=== PATIENT | female | born 1950 | race Caucasian/White ===

== ENCOUNTER → 2018-08-14 14:00 | Outpatient (CLI) | payer MEDICARE, OTHER, SELFPAY | PROVIDERS: Family Provider Family Medicine; PCP Family Medicine; Referring Provider Otolaryngology Otolaryngology/Facial Plastic Surgery; Visit Provider Otolaryngology Otolaryngology/Facial Plastic Surgery | DX: J32.9 Chronic sinusitis, unspecified (principal) | CPT/HCPCS: 87070; 87077; 87186; 87205 ==

== ENCOUNTER 2019-12-01 17:27 | Emergency (ER) | payer MEDICARE, OTHER, SELFPAY ==
[2019-12-01 17:28] VITALS: BP 194/114; PULSE 115; RESP 16; TEMP 36.7; O2SAT 96; BMI 43.2
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
--- NOTE | 2019-12-01 17:34 | CT_ITS ---
STUDY: CT BRAIN WITHOUT CONTRAST REASON FOR EXAM: Female, 69 years old. Confusion RADIATION DOSAGE (If Supplied By Facility): CTDIvol = ( 44.99 ) mGy, DLP = ( 762.36 ) mGycm TECHNIQUE: Transaxial CT imaging of the brain was performed without administration of intravenous contrast material. Individualized dose optimization techniques were used for this CT. COMPARISON: No relevant priors. FINDINGS: Normal soft tissue structures. Normal calvarium. Normal size ventricles and extra-axial spaces for the patient''s age. Normal white matter tracts of the cerebral hemispheres. Normal basal ganglia and thalami. Normal brainstem. Normal cerebellum. There is no intracranial hemorrhage. There are no findings of an acute ischemic infarction. Normal visualized paranasal sinuses. CT/Brain/Head without Contrast IMPRESSION: Normal unenhanced CT scan of the brain. Electronically Signed: Franklin Jenkins MD at 18:51 EDT , Service support ,
--- NOTE | 2019-12-01 17:34 | EKG12_ITS ---
Test Reason : Blood Pressure : / mmHG Vent. Rate : 100 BPM Atrial Rate : 100 BPM P-R Int : 136 ms QRS Dur : 074 ms QT Int : 358 ms P-R-T Axes : 057 044 061 degrees QTc Int : 461 ms Normal sinus rhythm Normal ECG Confirmed by MARLENE PAREDES MD ([id number]), continuity editor ABHAY ULLOA ([id number]) on 12/04/2019 9:04:47 AM Referred By: SHANIQUA Confirmed By:MARLENE PAREDES MD
--- NOTE | 2019-12-01 18:12 | ED.VIS.GEN ---
History of Present Illness Chief Complaint: Confusion Informant: Patient, Significant Other Onset: Month(s) Timing: Waxes and wanes Narrative: Patient is a 69-year-old female presenting with intermittent episodes of confusion. Apparently patient left her house with the TV on and water running. She did not tell her where she was going. She thought she had an allergy shot today. Patient receives her allergy shots on Tuesday but it is Tuesday. She could not get her car to start so she then wandered into the emergency room where she seemed confused. Nursing staff called her who states that patient's been having these episodes of confusion or she will leave with the stove on or things running over the past few months. They brought it up with her primary care doctor who said it is associated with either her glucose or her high blood pressure. The is concerned that she needs a brain scan. Patient currently denies any complaints. She admits to feeling flustered about the situation today. Past Medical History - Allergies and Home Meds Allergies/Adverse Reactions: Allergies azithromycin Allergy (Verified 12/01/19 17:32) PT UNSURE OF REACTION Sulfa (Sulfonamide Antibiotics) Allergy (Verified 12/01/19 17:32) PT UNSURE OF REACTION Primary Care Physician: Sascha Morgan MD [Primary Care Provider] - Past Medical History: - - Hypertension, diabetes mellitus, hypothyroid Surgical History: noncontributory Lives: Spouse/ Significant Other Review of Systems General: Denies: Chills, Fever, Sweats Eyes: Denies: Visual changes - bilaterally, Diplopia ENT: Denies: Rhinorrhea, Sore throat Cardiovascular: Denies: Chest pain, Palpitations Respiratory: Denies: Dyspnea, Cough, Dyspnea on exertion Gastrointestinal: Denies: Abdominal pain, Nausea, Vomiting, Diarrhea, Melena, Hematochezia Genitourinary: Denies: Dysuria, Hematuria, Frequency Musculoskeletal: Denies: Back pain, Extremity Pain Skin: Denies: Rash, Wounds Neurological: Denies: Headache, Weakness, Numbness Psych: Reports: - - Confusion, patient states she just feels frazzled Physical Exam Vital Signs/Narrative: Vital Signs Temp Pulse Resp BP Pulse Ox 12/01/19 17:28 98.1 F 115 H 16 194/114 H 96 Inital Vital Signs reviewed: Yes General: Well nourished, Well developed, Obese, No Acute Distress Head: Normocephalic, Atraumatic Eyes: Perrl, EOMI ENT: Moist mucous membranes, No rhinorrhea Neck: Supple, Nontender Cardiovascular: Regular rate, Regular rhythm, No murmurs Respiratory: No distress, CTA bilaterally, Chest nontender Abdomen: Soft, Nontender, Nondistended, Normal bowel sounds Back: Nontender, Normal Inspection Extremities: Nontender, No edema Skin: Normal color, No rash Neurological: Alert, Cranial nerves II-XII grossly intact, Normal Strength, Normal Sensation, Disoriented, - - Oriented to self only, appears to have poor short-term memory Psychological: Normal affect, Normal Mood Diagnostic/Tx/Re-eval Chest X-Ray - ED: 1 View, Read by ED Physician, Read by Radiologist, No Acute Disease Clinical Impression(s) from Imaging Studies Brain CT 12/01/19 17:34 IMPRESSION: Normal unenhanced CT scan of the brain. Electronically Signed: Franklin Jenkins MD at 18:51 EDT , Service support , Chest X-Ray 12/01/19 18:20 IMPRESSION: No definite acute or significant abnormality seen. Electronically Signed: Franklin Jenkins MD at 18:51 EDT , Service support , Laboratory Data 12/01/19 12/01/19 12/01/19 18:00 18:00 18:05 WBC 7.4 RBC 5.18 Hgb 15.9 H Hct 47.6 H MCV 91.9 MCH 30.7 MCHC 33.4 RDW Std Deviation 42.9 RDW Coeff of Yas 12.7 Plt Count 293 MPV 9.4 Immature Gran % (Auto) 0.400 Neut % (Auto) 73.5 H Lymph % (Auto) 13.6 L [place] % (Auto) 8.6 Eos % (Auto) 3.6 Baso % (Auto) 0.3 Absolute Neuts (auto) 5.5 Absolute Lymphs (auto) 1.01 Nucleated RBC % 0 Sodium 136 Potassium 3.6 Chloride 102 Carbon Dioxide 27.0 Anion Gap 7 BUN 19 H Creatinine 1.00 Estim Creat Clear Calc 47.78 Est GFR (MDRD) Af Amer 71 Est GFR (MDRD) Non-Af 58 L BUN/Creatinine Ratio 19.0 Glucose 306 H Calcium 9.7 Total Bilirubin 0.40 AST 21 ALT 28 Alkaline Phosphatase 107 Troponin I < 0.015 Total Protein 7.9 Albumin 3.7 Globulin 4.2 Albumin/Globulin Ratio 0.9 Urine Color Yellow Urine Clarity Clear Urine pH 6.0 Ur Specific [place] 1.020 Urine Protein 100 H Urine Glucose (UA) 1000 H Urine Ketones 15 H Urine Occult Blood 10 H Urine Nitrite Negative Urine Bilirubin Negative Urine Urobilinogen Normal Ur Leukocyte Esterase Negative Urine RBC 0 SEEN Urine WBC 0 SEEN Ur Squamous Epith Cells 0-5 SEEN Urine Bacteria RARE Urine Mucus 0 SEEN Urine Opiates Screen Urine Methadone Screen Ur Barbiturates Screen Ur Phencyclidine Scrn Ur Amphetamines Screen U Methamphetamin-MDMA U Benzodiazepines Scrn Urine Cocaine Screen U Cannabinoids Screen Ur Drug Screen Comment 12/01/19 18:05 WBC RBC Hgb Hct MCV MCH MCHC RDW Std Deviation RDW Coeff of Yas Plt Count MPV Immature Gran % (Auto) Neut % (Auto) Lymph % (Auto) [place] % (Auto) Eos % (Auto) Baso % (Auto) Absolute Neuts (auto) Absolute Lymphs (auto) Nucleated RBC % Sodium Potassium Chloride Carbon Dioxide Anion Gap BUN Creatinine Estim Creat Clear Calc Est GFR (MDRD) Af Amer Est GFR (MDRD) Non-Af BUN/Creatinine Ratio Glucose Calcium Total Bilirubin AST ALT Alkaline Phosphatase Troponin I Total Protein Albumin Globulin Albumin/Globulin Ratio Urine Color Urine Clarity Urine pH Ur Specific [place] Urine Protein Urine Glucose (UA) Urine Ketones Urine Occult Blood Urine Nitrite Urine Bilirubin Urine Urobilinogen Ur Leukocyte Esterase Urine RBC Urine WBC Ur Squamous Epith Cells Urine Bacteria Urine Mucus Urine Opiates Screen NEGATIVE Urine Methadone Screen NEGATIVE Ur Barbiturates Screen NEGATIVE Ur Phencyclidine Scrn NEGATIVE Ur Amphetamines Screen NEGATIVE U Methamphetamin-MDMA NEGATIVE U Benzodiazepines Scrn NEGATIVE Urine Cocaine Screen NEGATIVE U Cannabinoids Screen NEGATIVE Ur Drug Screen Comment - Rhythm Strip Rhythm Strip: Sinus Rhythm Rate: 100 Ectopy: None - EKG Initial EKG Interpretation: Sinus Rhythm, - - Normal sinus rhythm at a rate of 100 Normal intervals Normal axis Normal ST segments - Medical Decision Making Patient is evaluated after she came to the ER because her car would not start. It turns out patient is quite confused. Discussed with the who states patient has been wandering more, leaving the house with the stove on her water running and been more confused since June, over 6 months ago. He thinks she might need head imaging. He does feel comfortable keeping her at home however. Patient is confused with her presentation is really more consistent with dementia. She does not appear acutely encephalopathic. Patient is cooperative with a work-up but states that she does not really want a be here and wants to go home. She has a normal neurologic exam with no focal neurologic deficits. Work-up is largely unremarkable.Patient is hypertensive but attributes that to feeling anxious about the situation. Her symptoms are not consistent with hypertensive emergency however. Patient be discharged home into the care of her . He picks her up. Patient is counseled that she should not drive until she is cleared by her primary care doctor her neurologist for the safety of herself and others. ED Disposition - Plan for ED Patient: Disposition: Home or Assisted Living Diagnosis: Confusion Instructions: ED Confusion Referrals: Sascha Morgan MD [Primary Care Provider] - Additional Instructions: Tanya's head CT and medical work-up was normal today. I am concerned that she is displaying some signs of dementia. This needs to be followed up further by her primary care doctor. From there they can refer her to either neurology or [facility]. I would recommend that Tanya does not drive until cleared by either her primary care doctor or another specialist.
[2019-12-01 18:16] LABS: Mucous, Urine 0 SEEN /hpf (<or=2+); Red Blood Cells-Urine 0 SEEN /hpf (0-5); White Blood Cells 0 SEEN /hpf (0-5)
[2019-12-01 18:17] LABS: Absolute Lymphocyte Count 1.01 X10^3/uL (0.83-4.51); Absolute Neutrophil Count 5.5 X10^3/uL (2.0-7.7); Basophil# 0.02 X10^3/uL; Basophil% 0.3 % (0-1); Eosinophil# 0.27 X10^3/uL; Eosinophils% 3.6 % (0-5); Hematocrit 47.6 % (37-47); Hemoglobin 15.9 g/dL (12.0-15.0); Lymphocyte # 1.01 X10^3/ul (4.0); Lymphocyte % 13.6 % (19-41); Mean Corp Hgb Conc 33.4 g/dL (32-36); Mean Corpuscular Hgb 30.7 pg (27.0-32.0); Mean Corpuscular Volume 91.9 fL (81-99); Mean Platelet Vol. 9.4 fl (6.2-12.0); Monocyte# 0.64 X10^3/uL; Monocyte% 8.6 % (0-10); NRBC Flagged by Analyzer 0 % (0-5); Neutrophil # 5.47 X10^3/uL (2.7-7.7); Neutrophil % 73.5 % (47-70); Platelet Count 293 K/mm3 (150-450); RBC Distribution Width CV 12.7 % (11.6-14.6); RBC Distribution Width SD 42.9 fl (35.1-43.9); Red Blood Count 5.18 M/mm3 (4.2-5.4); White Blood Count 7.4 K/mm3 (4.4-11.0)
[2019-12-01 18:18] LABS: Color, Urine Yellow (Yellow); Glucose, Dipstick 1000 mg/dl (Normal); Ketone-Dipstick 15 mg/dl (Negative); Leukocyte Esterase-Dipstick Negative /ul (Negative); Nitrite-Dipstick Negative (Negative); Occult Blood-Urine 10 /ul (Negative); Protein-Dipstick 100 mg/dl (Negative); Urine Bilirubin Dipstick Negative (Negative); Urine Clarity Clear (Clear); Urine Urobilinogen Normal (Normal)
--- NOTE | 2019-12-01 18:20 | RAD_ITS ---
STUDY: X-RAY CHEST REASON FOR EXAM: Female, 69 years old. Altered mental status. TECHNIQUE: Single AP portable view of the chest. COMPARISON: None. FINDINGS: The lungs are clear and expanded. There is no demonstrated pleural abnormality. Normal size heart. Normal mediastinum and kenyon. Normal visualized pulmonary arteries. Normal visualized aortic arch and descending thoracic aorta. There are diffuse degenerative changes of the visualized thoracic spine. There is degenerative osteoarthritis of the bilateral shoulders. There is no demonstrated abnormality of the visualized soft tissue structures of the upper abdomen. RAD/Chest 1 View (Portable) IMPRESSION: No definite acute or significant abnormality seen. Electronically Signed: Franklin Jenkins MD at 18:51 EDT , Service support ,
[2019-12-01 18:24] LABS: Bacteria RARE /hpf (None Seen); Squamous Epithelial Cells - UA 0-5 SEEN /hpf (5-10)
[2019-12-01 18:32] LABS: Amphetamine Urine VISTA NEGATIVE (<1000 ng/mL); Barbiturate Urine VISTA NEGATIVE (< 200 ng/mL); Benzodiazepine Urine VISTA NEGATIVE (< 200 ng/mL); Cocaine Urine VISTA NEGATIVE (< 300 ng/mL); Ecstacy Urine VISTA NEGATIVE (< 500 ng/mL); Methadone Urine VISTA NEGATIVE (< 300 ng/mL); PCP Urine VISTA NEGATIVE (< 25 ng/mL); THC Urine VISTA NEGATIVE (< 50 ng/mL); Vista UDS pH Range 6
[2019-12-01 18:38] LABS: ALB/GLOB Ratio 0.9 RATIO (0.9-2.4); AST(SGOT) 21 U/L (15-37); Alanine Aminotransfer ALT/SGPT 28 U/L (13-56); Albumin, Serum 3.7 g/dL (3.2-5.0); Alkaline Phosphatase 107 U/L (45-117); Anion Gap 7 (5-15); BUN 19 mg/dL (7-18); Calcium,Total 9.7 mg/dL (8.5-10.1); Chloride 102 mmol/L (98-107); EST Glomerular Filtration Rate 58 mL/min (>60); Est Glom Filt Rate - Afr Amer 71 mL/min (>60); Estimated Creatinine Clearance 47.78 ml/min; Globulin 4.2 g/dL (2.2-4.2); Glucose 306 mg/dL (74-106); Potassium 3.6 mmol/L (3.5-5.1); Protein, Total 7.9 g/dL (6.4-8.2); Sodium Level 136 mmol/L (136-145)
[2019-12-01 19:31] VITALS: BP 184/100; PULSE 72; RESP 18; O2SAT 100
--- NOTE | 2019-12-01 19:32 | ED.RN ---
Pending s/o to come get PT as she is not safe to drive home.
[2019-12-03 10:55] LABS: Bedside Glucose 329 mg/dL (70-110)
== END 2019-12-01 19:51 | disposition home or self-care (01) ==
PROVIDERS: Emergency Provider Emergency Medicine; PCP Family Medicine
DX: R41.0 Disorientation, unspecified (principal); E11.9 Type 2 diabetes mellitus without complications; I10 Essential (primary) hypertension; E03.9 Hypothyroidism, unspecified; E66.9 Obesity, unspecified; Z79.4 Long term (current) use of insulin; Z79.899 Other long term (current) drug therapy; Z88.1 Allergy status to other antibiotic agents; Z88.2 Allergy status to sulfonamides
CPT/HCPCS: 70450; 71045; 80053; 80307; 81001; 82962; 84484; 85025; 93005; 99283; A4216

== ENCOUNTER 2020-12-30 16:38 | Emergency (ER) | payer MEDICARE, OTHER, SELFPAY ==
[2020-10-10 11:04] VITALS: BMI 46.4
[2020-12-30 16:39] VITALS: BP 170/70; PULSE 75; RESP 18; TEMP 36.5; O2SAT 98; BMI 45.5
--- NOTE | 2020-12-30 16:56 | EX.ED.DYSGE1 ---
HPI History of Present Illness Chief Complaint: Hypoglycemia Informant: patient, EMS and SNF Narrative Narrative: 70-year-old female from [place] states that she started to feel poorly around 4:15 pm. She states that she felt woozy and slow. She had a blood sugar checked and it was down into the 40s. She states that she ate some candy and 3 glucose tabs and 4 minutes after the glucose tabs they rechecked her blood sugar and it was in the 50s so they called EMS. She states for the past 5 days she has had difficulty with her blood sugars going too low. She states that her Levemir was altered but she did not get it last night. She had been taking Levemir 60 units nightly and aspart 36 units with each meal (3 times daily). She sees Dr. Pascual Tabares for endocrinology. Per [place]: bshe had her Levemir changed to 54 units which she got last night. Her aspart was changed to 32 units and she got it this morning but it was held at lunchtime because she was too low. No hard number to report. Patient states that this morning when she got up she felt fine. She notes that in 7 weeks that she has been at [place] she has lost 20 pounds. She is on a 1200-calorie diet and does not believe she is getting enough calories. BGT shortly after arrival shows her blood sugar to be 108. [facility] Medical History Diabetes Goiter Hyperlipidemia Hypertension Hypothyroidism Seasonal allergies Thyroid disease Home Medications duloxetine 60 mg PO DAILY 12/01/19 [History Last Taken Unknown] hydrochlorothiazide 25 mg PO DAILY 12/01/19 [History Last Taken Unknown] latanoprost (PF) 7.5 ml OP DAILY 12/01/19 [History Last Taken Unknown] levothyroxine 50 mcg PO QWEEK 12/01/19 [History Last Taken Unknown] levothyroxine 200 mcg PO DAILY 12/01/19 [History Last Taken Unknown] telmisartan 40 mg PO DAILY 12/01/19 [History Last Taken Unknown] ascorbate calcium (vitamin C) 500 mg tablet 500 mg PO DAILY 06/13/20 [History Last Taken Unknown] blood sugar diagnostic #10 ea 10/10/20 [History Last Taken Unknown] timolol maleate 0.5 % once daily eye drops 1 drp OPHTHALMIC DAILY ml 10/10/20 [History Last Taken Unknown] glucagon (human recombinant) 1 mg solution for injection 1 mg SC Q20M PRN #1 each 11/25/20 [Rx Last Taken Unknown] aspirin 81 mg PO DAILY 12/30/20 [History Last Taken Unknown] biotin 1,000 mcg PO DAILY 12/30/20 [History Last Taken Unknown] cephalexin 500 mg PO Q6 #40 capsule 12/30/20 [Rx Last Taken Unknown] escitalopram oxalate 10 mg PO DAILY 12/30/20 [History Last Taken Unknown] furosemide 20 mg PO DAILY 12/30/20 [History Last Taken Unknown] hydrochlorothiazide 25 mg PO DAILY 12/30/20 [History Last Taken Unknown] insulin aspart U-100 [Novolog Flexpen U-100 Insulin] 32 unit SUBCUT TID 12/30/20 [History Last Taken Unknown] insulin detemir U-100 [Levemir Flexpen] 54 unit SUBCUT QHS 12/30/20 [History Last Taken Unknown] ketotifen fumarate 1 drp EACH EYE DAILY 12/30/20 [History Last Taken Unknown] Allergy/AdvReac Type Severity Reaction Status Date / Time azithromycin Allergy PT UNSURE Verified 12/30/20 16:39 OF REACTION Sulfa (Sulfonamide Allergy PT UNSURE Verified 12/30/20 16:39 Antibiotics) OF REACTION Family History Mother Hypertension Myocardial infarction Father Diabetes CHF (congestive heart failure) Surgical History History of cholecystectomy History of tonsillectomy and adenoidectomy left eye cataract surgery thyroid removal Total knee replacement status Social History Smoking Status: Never smoker alcohol intake: current alcohol intake frequency: holidays/special occasions only substance use type: does not use what type of physical activity do you participate in: bicycling frequency: 3-4 times per week ROS ROS ED Constitutional Constitutional ED: Reports weight loss and other Details: See history of present illness ; Denies chills Eyes Eyes: Denies change in vision or diplopia ENT ENT ED: Denies ear pain, rhinorrhea or sore throat Cardiovascular Cardiovascular: Denies chest pain, orthopnea, palpitations or racing heartbeat Respiratory/Chest Respiratory/Chest: Denies cough, dyspnea or orthopnea Gastrointestinal Gastrointestinal: Denies abdominal pain, diarrhea, nausea or vomiting Genitourinary Genitourinary ED: Denies dysuria, hematuria or urinary frequency Musculoskeletal Musculoskeletal: Denies arthralgias or myalgias Integumentary Denies abscess or rash Neurologic Neurologic: Denies headache(s) or weakness Psychiatric Psychiatric: Denies anxiety, depression, suicidal ideation or suicidal thoughts Endocrine Endocrinology: Denies polydipsia, polyphagia or polyuria Allergic/Immunologic Allergic/Immunologic ED: Denies mouth swelling, tongue swelling or urticaria EXAM Physical Exam Const Vital Signs: 12/30/20 16:39 12/30/20 16:53 12/30/20 17:47 Temperature 97.7 F L Temperature Source Oral Pulse Rate 75 68 Respiratory Rate 18 Respiratory Effort Normal Non-Labored Blood Pressure 170/70 H 138/63 H Blood Pressure Mean 103 88 Pulse Ox 98 95 Oxygen Delivery Method Room Air Room Air Positive well nourished, well developed and obese General Appearance ED: well developed Nutritional Appearance: obese HEENT Reports normocephalic, head/scalp atraumatic and moist mucous membranes Eyes PERRL and EOMs intact bilaterally Neck no lymphadenopathy, supple and no JVD Resp normal respiratory effort and clear to auscultation bilaterally Cardio regular rate, regular rhythm and no murmurs GI normal to inspection, nondistended, normoactive bowel sounds and non-tender Palpation: soft Back/Spine no CVA tenderness and normal ROM Extremity Extremity Narrative: Bilateral lower extremity edema. Anteriorly over both legs is a mild amount of erythema the left is greater than right with increased warmth. General Extremety ED: Yes edema General Extremity: edema Neuro oriented x3 and CN's II-XII intact bilaterally Sensorium / Orientation: alert Motor Exam: strength 5/5 throughout Psych mental status grossly normal Mood & Affect: Negative for depressed or tearful Skin no rashes or lesions noted and no wounds MDM MDM MDM Narrative Medical decision making narrative: Patient's blood sugar shortly arrival is 106. She was given food. We will observe her for several more blood sugar readings. I spoke with Dr. Tabares. She would like to reduce her Levemir down to 40 units and her aspart down to 24 units. Patient's white count is normal. She is not febrile. I will place her on Keflex for the lower extremity erythema. Lab Data Labs: Laboratory Results - last 24 hr 12/30/20 12/30/20 12/30/20 16:45 16:45 17:06 WBC 6.3 RBC 4.75 Hgb 14.4 Hct 44.4 MCV 93.5 MCH 30.3 MCHC 32.4 RDW Std Deviation 43.0 RDW Coeff of Yas 12.5 Plt Count 311 MPV 9.5 Immature Gran % (Auto) 0.300 Neut % (Auto) 68.9 Lymph % (Auto) 13.9 L [place] % (Auto) 13.6 H Eos % (Auto) 3.0 Baso % (Auto) 0.3 Absolute Neuts (auto) 4.3 Absolute Lymphs (auto) 0.87 Nucleated RBC % 0 Sodium 140 Potassium 3.4 L Chloride 105 Carbon Dioxide 31.0 Anion Gap 4 L BUN 23 H Creatinine 1.04 H Estim Creat Clear Calc 43.46 Est GFR (MDRD) Af Amer 67 Est GFR (MDRD) Non-Af 56 L BUN/Creatinine Ratio 22.1 H Glucose 77 Calcium 9.7 POC Glucose 108 12/30/20 17:43 WBC RBC Hgb Hct MCV MCH MCHC RDW Std Deviation RDW Coeff of Yas Plt Count MPV Immature Gran % (Auto) Neut % (Auto) Lymph % (Auto) [place] % (Auto) Eos % (Auto) Baso % (Auto) Absolute Neuts (auto) Absolute Lymphs (auto) Nucleated RBC % Sodium Potassium Chloride Carbon Dioxide Anion Gap BUN Creatinine Estim Creat Clear Calc Est GFR (MDRD) Af Amer Est GFR (MDRD) Non-Af BUN/Creatinine Ratio Glucose Calcium POC Glucose 110 Discharge Plan Triage Chief Complaint: Hypoglycemia ED Provider: Eduard Lomas Dx/Rx/DC Orders Clinical Impression: Diabetic hypoglycemia, Cellulitis of left leg Instructions: ED Diabetic Insulin Reaction Prescriptions: New cephalexin [cephalexin] 500 MG capsule 500 mg PO Q6 Qty: 40 RF: 0 Discontinued insulin aspart U-100 100 UNITS/ML insulin pen 36 units subcut TIDCM RF: 0 insulin detemir U-100 100 UNITS/ML insulin pen 10 units subcut DAILY RF: 0 No Action ascorbate calcium (vitamin C) 500 mg tablet 500 mg PO DAILY RF: 0 timolol maleate 0.5 % drops, once daily 1 drp OPHTHALMIC DAILY RF: 0 (DME) blood sugar diagnostic Strip See Rx Instructions ea .ROUTE .MEDSUPPLY Qty: 10 RF: 0 levothyroxine 50 MCG tablet 50 mcg PO QWEEK RF: 0 telmisartan 40 MG tablet 40 mg PO DAILY RF: 0 levothyroxine 200 MCG tablet 200 mcg PO DAILY RF: 0 hydrochlorothiazide 25 MG tablet 25 mg PO DAILY RF: 0 duloxetine 60 MG capsule,delayed release(DR/EC) 60 mg PO DAILY RF: 0 latanoprost (PF) 7.5 ML drops 7.5 ml OP DAILY RF: 0 ketotifen fumarate 0.025 % (0.035 %) Drops 1 drp EACH EYE DAILY RF: 0 aspirin 81 mg Tablet 81 mg PO DAILY RF: 0 hydrochlorothiazide 25 mg Tablet 25 mg PO DAILY RF: 0 furosemide 20 mg Tablet 20 mg PO DAILY RF: 0 escitalopram oxalate 10 mg Tablet 10 mg PO DAILY RF: 0 biotin 1,000 mcg Tablet,Chewable 1,000 mcg PO DAILY RF: 0 insulin aspart U-100 [Novolog Flexpen U-100 Insulin] 100 unit/mL (3 mL) Insulin Pen 32 unit SUBCUT TID RF: 0 Levemir Flexpen 100 unit/mL (3 mL) Insulin Pen 54 unit SUBCUT QHS RF: 0 Glucagon Emergency Kit (human) 1 mg recon soln 1 mg SC Q20M PRN (Reason: hypoglycemia) Qty: 1 RF: 3 Primary Care Provider: Sascha Morgan Referrals: Sascha Morgan MD [Primary Care Provider] - 5-7 Days Activity Restrictions/Additional Instructions: Please note the following changes in your insulin. Levemir 40 units at bedtime Aspart 24 units with each meal Disposition Disposition: Assisted Living Discharge Location: [facility]
[2020-12-30 17:03] LABS: Absolute Lymphocyte Count 0.87 X10^3/uL (0.83-4.51); Absolute Neutrophil Count 4.3 X10^3/uL (2.0-7.7); Basophil# 0.02 X10^3/uL; Basophil% 0.3 % (0-1); Eosinophil# 0.19 X10^3/uL; Hematocrit 44.4 % (37-47); Hemoglobin 14.4 g/dL (12.0-15.0); Lymphocyte # 0.87 X10^3/ul (0.83-4.51); Lymphocyte % 13.9 % (19-41); Mean Corp Hgb Conc 32.4 g/dL (32-36); Mean Corpuscular Hgb 30.3 pg (27.0-32.0); Mean Corpuscular Volume 93.5 fL (81-99); Mean Platelet Vol. 9.5 fl (6.2-12.0); Monocyte# 0.85 X10^3/uL; Monocyte% 13.6 % (0-10); NRBC Flagged by Analyzer 0 % (0-5); Neutrophil % 68.9 % (47-70); Platelet Count 311 K/mm3 (150-450); RBC Distribution Width CV 12.5 % (11.6-14.6); Red Blood Count 4.75 M/mm3 (4.2-5.4); White Blood Count 6.3 K/mm3 (4.4-11.0)
[2020-12-30 17:11] LABS: Bedside Glucose 108 mg/dL (70-110)
[2020-12-30 17:19] LABS: Anion Gap 4 (5-15); BUN 23 mg/dL (7-18); BUN/Creat Ratio 22.1 RATIO (10-20); Calcium,Total 9.7 mg/dL (8.5-10.1); Chloride 105 mmol/L (98-107); Creatinine, Serum 1.04 mg/dL (0.55-1.02); EST Glomerular Filtration Rate 56 mL/min (>60); Est Glom Filt Rate - Afr Amer 67 mL/min (>60); Estimated Creatinine Clearance 43.46 ml/min; Glucose 77 mg/dL (74-106); Potassium 3.4 mmol/L (3.5-5.1); Sodium Level 140 mmol/L (136-145)
[2020-12-30 17:47] VITALS: BP 138/63; PULSE 68; O2SAT 95
[2020-12-30 17:51] LABS: Bedside Glucose 110 mg/dL (70-110)
[2020-12-30 19:03] VITALS: BP 141/73; PULSE 72; O2SAT 97
[2020-12-30 19:06] LABS: Bedside Glucose 121 mg/dL (70-110)
--- NOTE | 2020-12-30 19:10 | ED.RN ---
attempted to call report, nurse is at lunch.
== END 2020-12-30 19:29 | disposition home or self-care (01) ==
PROVIDERS: Emergency Provider Emergency Medicine; PCP Family Medicine
DX: E11.649 Type 2 diabetes mellitus with hypoglycemia without coma (principal); L03.116 Cellulitis of left lower limb; R60.0 Localized edema; I10 Essential (primary) hypertension; E04.9 Nontoxic goiter, unspecified; E78.5 Hyperlipidemia, unspecified; E03.9 Hypothyroidism, unspecified; E66.9 Obesity, unspecified; Z79.82 Long term (current) use of aspirin; Z79.4 Long term (current) use of insulin; Z79.890 Hormone replacement therapy; Z79.899 Other long term (current) drug therapy
CPT/HCPCS: 80048; 82962; 85025; 99285; A4216

== ENCOUNTER → 2021-08-10 | Outpatient (CLI) | payer MEDICARE, OTHER, SELFPAY ==
[2021-08-10 16:55] LABS: Anion Gap 5 (5-15); BUN 27 mg/dL (7-18); BUN/Creat Ratio 28.2 RATIO (10-20); Calcium,Total 9.5 mg/dL (8.5-10.1); Chloride 108 mmol/L (98-107); Creatinine, Serum 0.96 mg/dL (0.55-1.02); EST Glomerular Filtration Rate 61 mL/min (>60); Est Glom Filt Rate - Afr Amer 74 mL/min (>60); Glucose 126 mg/dL (74-106); Potassium 4.1 mmol/L (3.5-5.1); Sodium Level 140 mmol/L (136-145)
== END | disposition home or self-care (01) ==
LOC: LABSPEC 15:42
PROVIDERS: PCP Family Medicine; Referring Provider Internal Medicine Endocrinology, Diabetes & Metabolism; Visit Provider Internal Medicine Endocrinology, Diabetes & Metabolism
DX: I10 Essential (primary) hypertension (principal)
CPT/HCPCS: 36415; 80048

== ENCOUNTER 2021-09-25 10:07 | Outpatient (RCR) | payer MEDICARE, OTHER, SELFPAY ==
--- NOTE | 2021-09-28 16:46 | HP.OTEVAL ---
Patient's Visit Information SABINA READ is a 71 year old F, referred to Occupational Therapy by Dr. Pascual Tabares MD, with a diagnosis of edema. Date of Evaluation: 09/25/21 Occupational Therapist: Maia Ward, JERROD/Evens, CHT - Subjective This 71 year old female was seen for OT eval with a dx of edema- pt states she has had swelling for years- pt states she has been using compression socks for about two months- pt is wearing compression socks - 20- 30mmHg. pt states she started with a silver sneaker program about 3 weeks ago and with using the compression socks has noticed the swelling in her LE is better- states he legs do not feel as tight- and shoes are loser on her feet- states the top of her feet still get swollen- pt would like to know what she can do to assist with edema mtg. pt states her father also has swelling/edema. pt states she has had cellulitis in the past. - Lymphedema (Circumferential Measure) Mid-foot: right 24cm left 25.5cm Ankle: right 32cm left 31.5 Lower calf: right 29cm left 29.5cm Largest calf: right 47cm left 46cm Below knee: right 46cm left 46cm Lower Exremity Comments: pt demo with edema in bilateral LE- - Lower Limb Functional Index Lower Extremity Functional Score: 36 - Goals Demonstrate a 20% reduction in edema by d/c: Yes Demonstrate adequate knowledge of self-massage by 2nd week: Yes Demonstrate adequate knowledge skin care/prec by 2nd week: Yes Demonstrate adequate knowledge therapeutic exercises by d/c: Yes Select approp compression garment w/donning/care/wear by d/c: Yes Voice need to replace compression garment every 4-6mo by dc: Yes - Rehabilitation General Assessment: pt demo edema in bilateral LE and demo need for skilled OT services to ed. pt on mtg of LE edema- Today therapist ed. pt on need of change of compression socks to smaller size, ed. on skin care, and exercise (AROM, water aerobics) that would benefit circulation and decrease edema flair ups- therapist did ed. pt to get her compression socks on within the first 30-45min- after getting up in the am- pt demo understanding- therapist also ed. pt on use of toe cap under her compression socks to assist in edema control on top of her foot. pt and pts spouse demo understanding. therapist encouraged pt to initiate return to her swimming as this will assist pt with fluid circulation - pt was receptive. pt to return for ed. in left manual lymph massage she can perform herself 3-4x a day- pt will schedule if she wants to learn this kwadwo. pt and pts spouse demo understanding and was receptive to therapist ed. on mtg LE edema. Rehabilitation Potential: Questionable - Anticipated Interventions Education re assistive Equipment, Education re Diagnosis, Manual Lymph Drainage, Education re Life-long lymphedema Management, Education re Skin Care and Precautions, Education re Self Massage Techniques, Education re Correct Donning Tech,Care&Wearing Sched Comp Garments, Home Program - Visit Plan Frequency: 1x/Week Duration: 3 Weeks TEXT: Thank you for the opportunity to evaluate your patient. For Medicare and Medicare HMO plans, please review the plan of care and approve it. It will need to be FAXED BACK to us at [phone] for Medicare purposes. Please let me know if there are questions or concerns regarding this plan of care. Physician Signature: Date:
--- NOTE | 2021-12-28 11:23 | HP.OT.NRP ---
SABINA READ was seen in my office for initial evaluation on 09/25/21. The following Plan of Care was established for this patient: Initial Frequency: 1x/Week Initial Duration: 3 Weeks Anticipated Interventions: Education re assistive Equipment, Education re Diagnosis, Manual Lymph Drainage, Education re Life-long lymphedema Management, Education re Skin Care and Precautions, Education re Self Massage Techniques, Education re Correct Donning Tech,Care&Wearing Sched Comp Garments, Home Program This patient was last seen in our office 09/25/21. Pertinent comments regarding their Occupational therapy will appear below: Pt was seen for initial OT eval only- pt ed. on mtg of lymphedema - pt at this time has not scheduled a follow up visit and due to time lapse in services pt d/c at this time. At this point I will be discontinuing this patient from occupational therapy. I would be happy to see this patient again in the future if found appropriate by the physician. Thank you! Maia Ward, OTR/L, CHT
== END 2021-09-25 19:00 | disposition home or self-care (01) ==
LOC: OT 10:07
PROVIDERS: PCP Family Medicine; Referring Provider Internal Medicine Endocrinology, Diabetes & Metabolism; Visit Provider Internal Medicine Endocrinology, Diabetes & Metabolism
DX: R60.9 Edema, unspecified (principal)
CPT/HCPCS: 97166; 97530

== ENCOUNTER 2021-11-11 11:58 | Outpatient (CLI) | payer MEDICARE, OTHER, SELFPAY ==
[2021-11-11 15:28] LABS: Vitamin D,25 Hydroxy 41.7 ng/mL
[2021-11-11 15:43] LABS: Cholesterol 197 mg/dL (200); High Density Lipoprotein 35 mg/dL; T4 Free Direct 0.86 ng/dL (0.76-1.46); Triglycerides 165 mg/dL; Very Low Density Lipoprotein 33 mg/dL (5-40)
== END 2021-11-11 23:59 | disposition home or self-care (01) ==
LOC: BIMLAB 11:59
PROVIDERS: PCP Family Medicine; Referring Provider Nurse Practitioner Family; Visit Provider Nurse Practitioner Family
DX: E11.21 Type 2 diabetes mellitus with diabetic nephropathy (principal); E11.22 Type 2 diabetes mellitus with diabetic chronic kidney disease; Z79.4 Long term (current) use of insulin; N18.31 Chronic kidney disease, stage 3a; E55.9 Vitamin D deficiency, unspecified
CPT/HCPCS: 36415; 80061; 82306; 84439; 84443

== ENCOUNTER → 2022-12-31 | Outpatient (CLI) | payer MEDICARE, OTHER, SELFPAY ==
[2022-12-31 15:47] LABS: ALB/GLOB Ratio 1.2 RATIO (0.9-2.4); AST(SGOT) 15 U/L (15-37); Alanine Aminotransfer ALT/SGPT 20 U/L (13-56); Albumin, Serum 3.8 g/dL (3.2-5.0); Alkaline Phosphatase 82 U/L (45-117); Anion Gap 6 (5-15); BUN 42 mg/dL (7-18); BUN/Creat Ratio 34.7 RATIO (10-20); Calcium,Total 9.7 mg/dL (8.5-10.1); Chloride 107 mmol/L (98-107); Creatinine, Serum 1.21 mg/dL (0.55-1.02); EST Glomerular Filtration Rate 46 mL/min (>60); Est Glom Filt Rate - Afr Amer 56 mL/min (>60); Globulin 3.3 g/dL (2.2-4.2); Glucose 111 mg/dL (74-106); Protein, Total 7.1 g/dL (6.4-8.2); Sodium Level 142 mmol/L (136-145); T4 Free Direct 0.94 ng/dL (0.76-1.46); Thyroid Stim Hormone (TSH) 4.09 uIU/mL (0.358-3.74)
== END | disposition home or self-care (01) ==
LOC: BIMLAB 13:37
PROVIDERS: PCP Family Medicine; Referring Provider Nurse Practitioner Family; Visit Provider Nurse Practitioner Family
DX: E11.21 Type 2 diabetes mellitus with diabetic nephropathy (principal); E11.22 Type 2 diabetes mellitus with diabetic chronic kidney disease; Z79.4 Long term (current) use of insulin; N18.31 Chronic kidney disease, stage 3a
CPT/HCPCS: 36415; 80053; 84439; 84443

== ENCOUNTER → 2023-09-16 | Outpatient (CLI) | payer MEDICARE, OTHER, SELFPAY ==
[2023-09-16 14:47] LABS: AST(SGOT) 14 U/L (15-37); Alanine Aminotransfer ALT/SGPT 19 U/L (13-56); Albumin, Serum 3.7 g/dL (3.2-5.0); Alkaline Phosphatase 65 U/L (45-117); Anion Gap 3 (5-15); BUN 33 mg/dL (7-18); BUN/Creat Ratio 30.3 RATIO (10-20); Calcium,Total 9.4 mg/dL (8.5-10.1); Chloride 114 mmol/L (98-107); Cholesterol 193 mg/dL (200); Creatinine, Serum 1.09 mg/dL (0.55-1.02); EST Glomerular Filtration Rate 52 mL/min (>60); Est Glom Filt Rate - Afr Amer 63 mL/min (>60); Globulin 3.7 g/dL (2.2-4.2); Glucose 62 mg/dL (74-106); High Density Lipoprotein 38 mg/dL; Potassium 4.1 mmol/L (3.5-5.1); Protein, Total 7.4 g/dL (6.4-8.2); Sodium Level 143 mmol/L (136-145); Thyroid Stim Hormone (TSH) 5.45 uIU/mL (0.358-3.74); Triglycerides 116 mg/dL; Very Low Density Lipoprotein 23 mg/dL (5-40)
== END | disposition home or self-care (01) ==
LOC: LAB 13:21
PROVIDERS: Internal Medicine Endocrinology, Diabetes & Metabolism; PCP Family Medicine; Referring Provider Internal Medicine Nephrology; Visit Provider Internal Medicine Nephrology
DX: I12.9 Hypertensive chronic kidney disease with stage 1 through stage 4 chronic kidney disease, or unspecified chronic kidney disease (principal); E11.22 Type 2 diabetes mellitus with diabetic chronic kidney disease; E11.21 Type 2 diabetes mellitus with diabetic nephropathy; N18.32 Chronic kidney disease, stage 3b; E89.0 Postprocedural hypothyroidism; E78.5 Hyperlipidemia, unspecified; E55.9 Vitamin D deficiency, unspecified
CPT/HCPCS: 36415; 80053; 80061; 82306; 84443

== ENCOUNTER → 2023-09-27 | Outpatient (CLI) | payer MEDICARE, OTHER, SELFPAY ==
[2023-09-27 11:07] LABS: Hematocrit 38.3 % (37-47); Hemoglobin 11.9 g/dL (12.0-15.0); Mean Corp Hgb Conc 31.1 g/dL (32-36); Mean Corpuscular Hgb 29.5 pg (27.0-32.0); Mean Corpuscular Volume 94.8 fL (81-99); Mean Platelet Vol. 9.5 fl (6.2-12.0); Platelet Count 254 K/mm3 (150-450); RBC Distribution Width CV 14.4 % (11.6-14.6); RBC Distribution Width SD 50.1 fl (35.1-43.9); Red Blood Count 4.04 M/mm3 (4.2-5.4); White Blood Count 5.6 K/mm3 (4.4-11.0)
[2023-09-27 11:21] LABS: Albumin, Serum 3.7 g/dL (3.2-5.0); BUN 35 mg/dL (7-18); BUN/Creat Ratio 28.5 RATIO (10-20); Calcium,Total 9.5 mg/dL (8.5-10.1); Chloride 111 mmol/L (98-107); Creatinine, Serum 1.23 mg/dL (0.55-1.02); EST Glomerular Filtration Rate 45 mL/min (>60); Est Glom Filt Rate - Afr Amer 55 mL/min (>60); Glucose 74 mg/dL (74-106); Iron 52 ug/dL (50-170); Iron Binding Capacity,Total 257 ug/dL (250-450); Phosphorus 3.1 mg/dL (2.5-4.9); Potassium 4.2 mmol/L (3.5-5.1); Sodium Level 142 mmol/L (136-145)
[2023-09-27 11:22] LABS: PTHIN 70.6 pg/mL (18.4-80.1)
[2023-09-27 12:10] LABS: Microalbumin:Creatinine Ratio 705.8 mg/g CRE (<30 mg/g CRE)
[2023-09-28 17:05] LABS: Ferritin 145 ng/mL (8-252)
== END | disposition home or self-care (01) ==
LOC: POLAB3 10:46
PROVIDERS: PCP Family Medicine; Visit Provider Internal Medicine Nephrology
DX: N18.32 Chronic kidney disease, stage 3b (principal); D64.9 Anemia, unspecified
CPT/HCPCS: 36415; 80069; 82043; 82570; 82728; 83540; 83550; 83970; 85027

== ENCOUNTER 2023-10-31 12:59 | Outpatient (RCR) | payer MEDICARE, OTHER, SELFPAY | END 2023-11-13 23:59 | LOC: NS 12:59 | PROVIDERS: PCP Family Medicine; Referring Provider Nurse Practitioner Family; Visit Provider Nurse Practitioner Family | DX: Z71.3 Dietary counseling and surveillance (principal); E11.22 Type 2 diabetes mellitus with diabetic chronic kidney disease; N18.31 Chronic kidney disease, stage 3a; E66.9 Obesity, unspecified; I12.9 Hypertensive chronic kidney disease with stage 1 through stage 4 chronic kidney disease, or unspecified chronic kidney disease | CPT/HCPCS: 97802 ==

== ENCOUNTER 2023-11-30 13:08 | Outpatient (RCR) | payer MEDICARE, OTHER, SELFPAY | END 2023-12-13 23:59 | LOC: NS 13:08 | PROVIDERS: PCP Family Medicine; Referring Provider Nurse Practitioner Family; Visit Provider Nurse Practitioner Family | DX: Z71.3 Dietary counseling and surveillance (principal); E11.22 Type 2 diabetes mellitus with diabetic chronic kidney disease; N18.31 Chronic kidney disease, stage 3a; E66.9 Obesity, unspecified; I12.9 Hypertensive chronic kidney disease with stage 1 through stage 4 chronic kidney disease, or unspecified chronic kidney disease | CPT/HCPCS: 97803 ==

== ENCOUNTER 2024-02-08 12:47 | Outpatient (RCR) | payer MEDICARE, OTHER, SELFPAY | END 2024-02-12 23:59 | LOC: NS 12:47 | PROVIDERS: PCP Family Medicine; Referring Provider Nurse Practitioner Family; Visit Provider Nurse Practitioner Family | DX: Z71.3 Dietary counseling and surveillance (principal); I12.9 Hypertensive chronic kidney disease with stage 1 through stage 4 chronic kidney disease, or unspecified chronic kidney disease; E11.22 Type 2 diabetes mellitus with diabetic chronic kidney disease; N18.31 Chronic kidney disease, stage 3a; E66.9 Obesity, unspecified | CPT/HCPCS: 97803 ==

== ENCOUNTER → 2024-04-17 | Outpatient (CLI) | payer MEDICARE, OTHER, SELFPAY ==
[2024-04-17 12:55] LABS: Hematocrit 38.8 % (37-47); Hemoglobin 12.3 g/dL (12.0-15.0); Mean Corp Hgb Conc 31.7 g/dL (32-36); Mean Corpuscular Hgb 30.1 pg (27.0-32.0); Mean Corpuscular Volume 95.1 fL (81-99); Platelet Count 254 K/mm3 (150-450); RBC Distribution Width SD 48.5 fl (35.1-43.9); Red Blood Count 4.08 M/mm3 (4.2-5.4); White Blood Count 5.6 K/mm3 (4.4-11.0)
[2024-04-17 13:23] LABS: Albumin, Serum 3.6 g/dL (3.2-5.0); BUN 34 mg/dL (7-18); BUN/Creat Ratio 28.1 RATIO (10-20); Calcium,Total 9.6 mg/dL (8.5-10.1); Chloride 108 mmol/L (98-107); Creatinine, Serum 1.21 mg/dL (0.55-1.02); EST Glomerular Filtration Rate 46 mL/min (>60); Est Glom Filt Rate - Afr Amer 56 mL/min (>60); Ferritin 122 ng/mL (8-252); Glucose 77 mg/dL (74-106); Iron 49 ug/dL (50-170); Iron Binding Capacity,Total 272 ug/dL (250-450); Phosphorus 3.7 mg/dL (2.5-4.9); Potassium 3.9 mmol/L (3.5-5.1); Sodium Level 143 mmol/L (136-145)
== END | disposition home or self-care (01) ==
LOC: LAB 11:43
PROVIDERS: PCP Family Medicine; Referring Provider Internal Medicine Nephrology; Visit Provider Internal Medicine Nephrology
DX: N18.32 Chronic kidney disease, stage 3b (principal); D64.9 Anemia, unspecified
CPT/HCPCS: 36415; 80069; 82728; 83540; 83550; 85027

== ENCOUNTER → 2024-10-23 | Outpatient (CLI) | payer MEDICARE, OTHER, SELFPAY ==
[2024-10-23 13:39] LABS: Microalbumin:Creatinine Ratio 3930.2 mg/g CRE
== END | disposition home or self-care (01) ==
LOC: POLAB3 11:56
PROVIDERS: PCP Family Medicine; Visit Provider Internal Medicine Nephrology
DX: E11.9 Type 2 diabetes mellitus without complications (principal)
CPT/HCPCS: 82043; 82570

== ENCOUNTER 2025-07-18 08:36 | Day surgery (SDC) | payer MEDICARE, OTHER, SELFPAY ==
--- NOTE | 2025-07-17 12:06 | PAT.ANESEVAL ---
Pre-Assessment Diagnosis/Proposed Procedure Planned Operative Procedure(s): EGD Anesthesia History Anesthesia History - environmental consultant: Anesthesia History - environmental consultant Hx Hospitalization No 07/17/25 08:23 Any Problems With Anesthesia No 07/17/25 08:23 Cholinesterase deficiency No 07/17/25 08:23 You/Your Family Experience No 07/17/25 08:23 fever (hyperthermia) with Relationship Recent Exposure to Contagious Disease Does patient have nerve No 07/17/25 08:23 stimulator Patient instructed to have device shut off --Does patient have Pacemaker or ICD? When Was Last Pacemaker Check QUESTION #4 FULL TEXT: You/Your Family Experience fever (hyperthermia) with Anesthesia Last Oral Intake Last Oral intake: Last Oral Intake NPO since Meds taken in AM with sips of water? Meds patient instructed to take am of surgery PONV PONV - environmental consultant: PONV - environmental consultant Female Yes 07/17/25 08:23 HX of Motion Sickness No 07/17/25 08:23 HX of N/V After Surgery Yes 07/17/25 08:23 Non-Smoker Yes 07/17/25 08:23 Duration of Surgery greater No 07/17/25 08:23 than 60 minutes Number of Risk Factors 3 07/17/25 08:23 PONV Score Moderate Risk 07/17/25 08:23 Height & Weight Height & Weight: Anesthesia: Height & Weight Height 5 ft 5.5 in 02/18/25 11:47 Respiratory Assessment Respiratory Assessment - environmental consultant: Respiratory Tract Infection Hx - environmental consultant Hx Respiratory Tract Infection No 07/17/25 08:23 STOP Sleep Apnea STOP Sleep Apnea - environmental consultant: STOP Sleep Apnea - environmental consultant Hx Hypertension Yes 07/17/25 08:23 Hx Sleep Apnea Yes 07/17/25 08:23 CPAP Yes 07/17/25 08:23 BIPAP No 07/17/25 08:23 Do you snore loudly (louder than talking or can be heard Do you often feel tired/ fatigued/ sleepy during daytime? Has anyone observed you stop breathing during sleep? STOP Results Positive 07/17/25 08:23 QUESTION #5 FULL TEXT : Do you snore loudly (louder than talking or can be heard through closed doors)? 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 Specify any problems Hx of Preganancy in last 3 No 07/17/25 08:23 Months Nurse Filling Out Transfusion VLEHMAN 07/17/25 08:23 & Questions: Date: 07/17/25 07/17/25 08:23 Time: 08:27 07/17/25 08:23 Patient unable to answer at this time (ie. confused, unrespo /Reproduction History /Reproductive History - environmental consultant: /Reproductive Hx- environmental consultant Hx Now No 07/17/25 08:23 Gestational Age (in weeks): EDC: Hx Hx Para Hx Section SAB No 07/17/25 08:23 Does the father of the baby or his family experience fever w Father of the baby Malignant Hypertension history comment [employer] [facility] [employer] Medical History Wears glasses Depression Dementia Insulin dependent diabetes mellitus Arthritis Bladder disease History of renal disease History of hiatal hernia Asthma CPAP (continuous positive airway pressure) dependence Sleep apnea Non-smoker History of edema History of echocardiogram Cardiology follow-up encounter Edema Encounter for long-term (current) insulin use Hyperlipidemia Hypothyroidism Hypertension Thyroid disease Diabetes Goiter Seasonal allergies Home Medications Medication Instructions Recorded Last Taken Type latanoprost (PF) 0.005 % eye drops 7.5 ml OP DAILY 12/01/19 Unknown History blood sugar diagnostic #10 ea 10/10/20 Unknown History timolol maleate 0.5 % once daily 1 drp ophthalmic (eye) DAILY 10/10/20 Unknown History eye drops glucagon (human recombinant) 1 mg 1 mg subcut Q20M PRN hypoglycemia 11/25/20 Unknown Rx solution for injection (Glucagon #1 ea Emergency Kit) lancets 33 gauge (OneTouch Delica #100 ea 01/26/21 Unknown Rx Plus Lancet) levothyroxine 200 mcg tablet 200 mcg PO DAILY #90 tabs 11/12/21 Unknown Rx compr.stocking,knee,long,x-lrg #6 ea 11/01/22 Unknown Rx pen needle, diabetic 31 gauge x #100 ea 02/20/25 Unknown Rx 1/4" (1st Tier Unifine Pentips) Novolog FlexPen U-100 Insulin 100 See Rx Instructions subcut 03/04/25 Unknown Rx unit/mL (3 mL) subcutaneous .COMPLEX #15 mL (insulin aspart U-100) blood sugar diagnostic #100 ea 03/14/25 Unknown Rx albuterol sulfate 90 mcg/actuation 2 puff inhalation Q4-6H PRN 06/19/25 Unknown History aerosol inhaler bronchospasm biotin 5 mg capsule 5 mg PO QDAY 06/19/25 Unknown History bumetanide 1 mg tablet 1 mg PO BID 06/19/25 Unknown History carvedilol 25 mg tablet 25 mg PO BID 06/19/25 Unknown History cyclobenzaprine 5 mg tablet 5 mg PO QHS 06/19/25 Unknown History hydralazine 100 mg tablet 100 mg PO BID 06/19/25 Unknown History rivastigmine 9.5 mg/24 hour 1 patch transdermal ONCE 06/19/25 Unknown History transdermal patch (Exelon Patch) sucralfate 1 gram tablet (Carafate) 1 g PO BID 06/19/25 Unknown History telmisartan 40 mg tablet 80 mg PO DAILY 06/19/25 Unknown History insulin glargine 100 unit/mL (3 38 unit (0.38 mL) subcut QAM #15 mL 06/24/25 Unknown Rx mL) subcutaneous pen (Lantus Solostar U-100 Insulin) escitalopram oxalate 10 mg tablet 10 mg PO DAILY 07/17/25 Unknown History (Lexapro) Allergy/AdvReac Type Severity Reaction Status Date / Time azithromycin Allergy rash Verified 07/17/25 08:16 Sulfa (Sulfonamide Allergy PT UNSURE Verified 07/17/25 08:16 Antibiotics) OF REACTION tirzepatide (From Mounjaro) AdvReac Intermediate Diarrhea/GI Verified 07/17/25 08:16 upset wheat AdvReac Intermediate wheezingb Verified 07/17/25 08:16 lactose AdvReac Unknown Other Verified 07/17/25 08:16 Family History Mother Hypertension Myocardial infarction Kidney disease Father Diabetes CHF (congestive heart failure) CAD (coronary artery disease) Myocardial infarction Hypertension Surgical History thyroid removal History of tonsillectomy and adenoidectomy Total knee replacement status History of cholecystectomy left eye cataract surgery Social History Smoking Status: Never smoker alcohol intake: current alcohol intake frequency: holidays/special occasions only substance use type: does not use what type of physical activity do you participate in: bicycling frequency: 3-4 times per week Audit: Pertinent Findings Pertinent Findings EKG Perinent findings: 12/01/2019. Normal sinus rhythm 100 bpm. Normal EKG Echo (EF%) pertinent findings: 06/28/2025. EF 70 to 75%. Pulmonary artery pressure 60. Consult pertinent findings: Cardiology 04/03/2025 Dominick Mcdaniel. Hypertension. Labile. Continue Carvedilol hydralazine and telmisartan. Aortic regurgitation. ALEXYS showed no significant aortic regurgitation. Shortness of breath. Stress test showed no ischemia. Suspect hypoventilation syndrome due to obesity. Recommendation Anesthesia Recommendation Anesthesia recommendation: OPTIMIZED for anesthesia
[2025-07-18] VITALS (8 sets, daily range): BP systolic 130–149; BP diastolic 45–100; PULSE 59–64; RESP 16–18; TEMP 36–36.6; O2SAT 93–98; BMI 48.2
[2025-07-18] MEDS: Lactated Ringers 1,000 ML 15 ML IV (09:25)
--- NOTE | 2025-07-18 09:30 | EGD_PTH ---
PATIENT: SABINA READ LOC: EN U#:[id number] AGE/SX: 75/F ROOM: RE07/18/[address]: Dr. Jerome Alicea DO : 1950 BED: DIS: 07/18/2025 SPEC #: [id number] RECD: 07/18/25 11:15 STATUS: VAZQUEZ CARISSA #: [id number] BAIRON: 07/18/25 09:[address]: Jerome Alicea DEPT: SURGICAL PATHOLOGY RECD BY: Bette Guido ENTERED: 07/18/25 13:44 SP TYPE: EGD BIOPSY DOMINGUEZ DR: Dr. Sascha Morgan MD Tissues: Esophagus, NOS Procedures: Surgery Specimen Level IV HEADER OPERATION: EGD, biopsy, dilation PRE-OP DIAGNOSIS: Diabetes, early satiety, dysphagia TISSUE SUBMITTED: A. Random esophagus MICROSCOPIC DIAGNOSIS A. Esophagus, random, biopsy: - Benign squamous epithelium without eosinophilia or active inflammation MICROSCOPIC DESCRIPTION Slides are reviewed. GROSS DESCRIPTION A. Received in fixative is one container labeled with the patient's name and designated "Random esophagus biopsy." The specimen consists of three irregular fragments of packer tissue that measure 0.2 to 0.4 cm. The specimen is totally submitted in one cassette. [place] 07/18/2025 CPT:29832
--- NOTE | 2025-07-18 09:45 | PRE.ANES_ITS ---
ASA Classification* ASA Classification ASA Classification: 3 Assessment & Plan Anesthesia* Anesthesia Assessment Anesthesia Assessment: Discussed sedation and/or anesthesia options, risks, benefits, and alternatives with patient/parents/legal guardian/POA. Questions invited. The patient/parents/legal guardian/POA seems to understand and agrees to proceed with anesthesia plan. Reviewed the physical assessment, medical history, allergy history and patient home medications list prior to surgery/procedure/anesthetic and documented any changes. Performed airway and anesthesia risk assessments. Anesthesia Type Anesthesia Type: MAC History Source History Obtained from:: Patient and Chart Anesthesia Focused Assessment* Temperature: 97.8 F Pulse Rate: 59 Blood Pressure: 149/100 Respiratory Rate: 16 Pulse Ox: 98 Oxygen Delivery Method: Room Air Airway Assessment Mouth opens: >3 cm Mallampati Score: III Teeth Condition: Caps/Crowns (one crown) Neck Range of motion (ROM): Limited ROM (Severe Restriction) Labs Anesthesia Preop lab: CBC WBC, (4.4-11.0) 5.6 K/mm3 04/17/24, 11: RBC, (4.2-5.4) 4.08 M/mm3 L 04/17/24, 11:59 Hgb, (12.0-15.0) 12.3 g/dL 04/17/24, 11: Hct, (37-47) 38.8 % 04/17/24, : Plt Count, (150-450) 254 K/mm3 04/17/24, 11:59 CHEMISTRY Potassium, (3.5-5.1) 3.9 mmol/L 04/17/24, 11:59 Sodium, (136-145) 143 mmol/L 04/17/24, 11:59 Phosphorus, (2.5-4.9) 3.7 mg/dL 04/17/24, 11:59 BUN, (7-18) 34 mg/dL H 04/17/24, 11:59 Creatinine, (0.55-1.02) 1.21 mg/dL H 04/17/24, 11:59 Glucose, (74-106) 77 mg/dL 04/17/24, 11:59 POC Glucose, (70-110) 121 mg/dL H 12/30/20, 18:59 TSH, (0.358-3.74) 5.45 uIU/mL H 09/16/23, 13:24 COAG Pre-Assessment Diagnosis/Proposed Procedure Planned Operative Procedure(s): EGD Anesthesia History 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 When Was Last Pacemaker Check QUESTION #4 FULL TEXT: You/Your Family Experience fever (hyperthermia) with Anesthesia Last Oral Intake Last Oral intake: Last Oral Intake NPO since 07:45 07/18/25 09:08 Meds taken in AM with sips of Yes 07/18/25 09:08 water? Meds patient instructed to take am of surgery Any additional information?: Yes Meds taken in AM with sips of water?: Yes PONV PONV - halal meat packer: PONV - halal meat packer Female Yes 07/17/25 08:23 HX of Motion Sickness No 07/17/25 08:23 HX of N/V After Surgery Yes 07/17/25 08:23 Non-Smoker Yes 07/17/25 08:23 Duration of Surgery greater No 07/17/25 08:23 than 60 minutes Number of Risk Factors 3 07/17/25 08:23 PONV Score Moderate Risk 07/17/25 08:23 Height & Weight Height & Weight: Anesthesia: Height & Weight Height 5 ft 5 in 07/18/25 09:08 Weight: 131.542 kg 07/18/25 09:08 Body Mass Index (BMI) 48.2 07/18/25 09:08 Respiratory Assessment Respiratory Assessment - halal meat packer: Respiratory Tract Infection Hx - halal meat packer Hx Respiratory Tract Infection No 07/17/25 08:23 STOP Sleep Apnea STOP Sleep Apnea - halal meat packer: STOP Sleep Apnea - halal meat packer Hx Hypertension Yes 07/17/25 08:23 Hx Sleep Apnea Yes 07/17/25 08:23 CPAP Yes 07/17/25 08:23 BIPAP No 07/17/25 08:23 Do you snore loudly (louder than talking or can be heard Do you often feel tired/ fatigued/ sleepy during daytime? Has anyone observed you stop breathing during sleep? STOP Results Positive 07/17/25 08:23 QUESTION #5 FULL TEXT : Do you snore loudly (louder than talking or can be heard through closed doors)? 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 Specify any problems Hx of Preganancy in last 3 No 07/17/25 08:23 Months Nurse Filling Out Transfusion VLEHMAN 07/17/25 08:23 & Questions: Date: 07/17/25 07/17/25 08:23 Time: 08:27 07/17/25 08:23 Patient unable to answer at this time (ie. confused, unrespo /Reproduction History /Reproductive History - halal meat packer: /Reproductive Hx- halal meat packer Hx Now No 07/17/25 08:23 Gestational Age (in weeks): EDC: Hx Hx Para Hx Section SAB No 07/17/25 08:23 Does the father of the baby or his family experience fever w Father of the baby Malignant Hypertension history comment Active Medications Active Medications: Current Medications Generic Name Dose Route Start Last Admin Trade Name Freq PRN Reason Stop Dose Admin Lactated Ringer's 1,000 mls @ 15 mls/hr 07/18/25 09:00 07/18/25 09:25 IV 15 mls/hr .Q48H MARGARITA Administration PFSH Medical History Wears glasses Depression Dementia Insulin dependent diabetes mellitus Arthritis Bladder disease History of renal disease History of hiatal hernia Asthma CPAP (continuous positive airway pressure) dependence Sleep apnea Non-smoker History of edema History of echocardiogram Cardiology follow-up encounter Edema Encounter for long-term (current) insulin use Hyperlipidemia Hypothyroidism Hypertension Thyroid disease Diabetes Goiter Seasonal allergies Home Medications Medication Instructions Recorded Last Taken Type latanoprost (PF) 0.005 % eye drops 7.5 ml OP DAILY Unknown History blood sugar diagnostic #10 ea 10/10/20 Unknown Hist ory timolol maleate 0.5 % once daily 1 drp ophthalmic (eye ) DAILY 10/10/20 Unknown History eye drops glucagon (human recombinant) 1 mg 1 mg subcut Q20M PRN hypoglycemia 11/25/20 Unknown Rx solution for injection (Glucagon #1 ea Emergency Kit) lancets 33 gauge (OneTouch Delica #100 ea 01/26/21 Unk nown Rx Plus Lancet) levothyroxine 200 mcg tablet 200 mcg PO DAILY #90 tabs 11/12/21 07/18/25 Rx compr.stocking,knee,long,x-lrg #6 ea 11/01/22 Unknown Rx pen needle, diabetic 31 gauge x #100 ea 02/20/25 Unkno wn Rx 1/4" (1st Tier Unifine Pentips) Novolog FlexPen U-100 Insulin 100 See Rx Instructions subcut 03/04/25 Unknown Rx unit/mL (3 mL) subcutaneous .COMPLEX #15 mL (insulin aspart U-100) blood sugar diagnostic #100 ea 03/14/25 Unknown Rx albuterol sulfate 90 mcg/actuation 2 puff inhalation Q 4-6H PRN 06/19/25 07/18/25 History aerosol inhaler bronchospasm biotin 5 mg capsule 5 mg PO QDAY 06/19/25 History bumetanide 1 mg tablet 1 mg PO BID 06/19/25 Unknown History carvedilol 25 mg tablet 25 mg PO BID 06/19/25 History cyclobenzaprine 5 mg tablet 5 mg PO QHS 06/19/25 Unkno wn History hydralazine 100 mg tablet 100 mg PO BID 06/19/2507/18 History rivastigmine 9.5 mg/24 hour 1 patch transdermal ONCE 1 08/19/24 07/18/25 History transdermal patch (Exelon Patch) sucralfate 1 gram tablet (Carafate) 1 g PO BID 5 Unknown History telmisartan 40 mg tablet 80 mg PO DAILY 06/19/2512/07 History insulin glargine 100 unit/mL (3 38 unit (0.38 mL) subc ut QAM #15 mL 06/24/25 U nknown Rx mL) subcutaneous pen (Lantus Solostar U-100 Insulin) escitalopram oxalate 10 mg tablet 10 mg PO DAILY 07/1707/18/25 History (Lexapro) Allergy/AdvReac Type Severity Reaction Status Date / Time azithromycin Allergy rash Verified 07/18/25 09:04 Sulfa (Sulfonamide Allergy PT UNSURE Verified 07/18/25 09:04 Antibiotics) OF REACTION tirzepatide (From Mounjaro) AdvReac Intermediate Diarrhea/GI Verified 07/18/25 09:04 upset wheat AdvReac Intermediate wheezingb Verified 07/18/25 09:04 lactose AdvReac Unknown Other Verified 07/18/25 09:04 Family History Mother Hypertension Myocardial infarction Kidney disease Father Diabetes CHF (congestive heart failure) CAD (coronary artery disease) Myocardial infarction Hypertension Surgical History thyroid removal History of tonsillectomy and adenoidectomy Total knee replacement status History of cholecystectomy left eye cataract surgery Social History Smoking Status: Never smoker alcohol intake: current alcohol intake frequency: holidays/special occasions only substance use type: does not use what type of physical activity do you participate in: bicycling frequency: 3-4 times per week Review of Systems (Anesthesia) ROS Narrative System reviewed and no additional complaints, except as documented.
--- NOTE | 2025-07-18 09:53 | HP.PCM_ITS ---
HPI - General General Date of Admission: 07/18/25 Date of Service: 07/18/25 Chief Complaint: epigastric pain and difficulty swallowing. HPI Narrative TANYA READ, is a 75 F who presents [ Chief Complaint: Early satiety Referred from primary care provider due to epigastric pain and difficulty swallowing. Upper GI series 04/18/2025 stable hiatal hernia esophageal dysmotility and reflux Establishment 06/20/2025 -Early satiety over the past few months, has lost some weight but this is intentional -Eating small meals helps -Diet consist mostly of lean meats and veggies, occasionally will have beef -Past medical history of diabetes and was on Trulicity but had to discontinue -Having difficulty swallowing at times with 1 episode of regurgitation -Notes a history of a hiatal hernia -Denies nausea vomiting heartburn or abdominal pain -Last colonoscopy less than 10 years ago with polyps -She has had an EGD before but unsure when -Has been on numerous PPIs in the past and famotidine [facility] Medical History Wears glasses Depression Dementia Insulin dependent diabetes mellitus Arthritis Bladder disease History of renal disease History of hiatal hernia Asthma CPAP (continuous positive airway pressure) dependence Sleep apnea Non-smoker History of edema History of echocardiogram Cardiology follow-up encounter Edema Encounter for long-term (current) insulin use Hyperlipidemia Hypothyroidism Hypertension Thyroid disease Diabetes Goiter Seasonal allergies Home Medications Medication Instructions Recorded Last Taken Type latanoprost (PF) 0.005 % eye drops 7.5 ml OP DAILY Unknown History blood sugar diagnostic #10 ea 10/10/20 Unknown Hist ory timolol maleate 0.5 % once daily 1 drp ophthalmic (eye ) DAILY 10/10/20 Unknown History eye drops glucagon (human recombinant) 1 mg 1 mg subcut Q20M PRN hypoglycemia 11/25/20 Unknown Rx solution for injection (Glucagon #1 ea Emergency Kit) lancets 33 gauge (OneTouch Delica #100 ea 01/26/21 Unk nown Rx Plus Lancet) levothyroxine 200 mcg tablet 200 mcg PO DAILY #90 tabs 11/12/21 07/18/25 Rx compr.stocking,knee,long,x-lrg #6 ea 11/01/22 Unknown Rx pen needle, diabetic 31 gauge x #100 ea 02/20/25 Unkno wn Rx 1/" (1st Tier Unifine Pentips) Novolog FlexPen U-100 Insulin 100 See Rx Instructions subcut 03/04/25 Unknown Rx unit/mL (3 mL) subcutaneous .COMPLEX #15 mL (insulin aspart U-100) blood sugar diagnostic #100 ea 03/14/25 Unknown Rx albuterol sulfate 90 mcg/actuation 2 puff inhalation Q 4-6H PRN 06/19/25 07/18/25 History aerosol inhaler bronchospasm biotin 5 mg capsule 5 mg PO QDAY 06/19/25 History bumetanide 1 mg tablet 1 mg PO BID 06/19/25 Unknown History carvedilol 25 mg tablet 25 mg PO BID 06/19/25 History cyclobenzaprine 5 mg tablet 5 mg PO QHS 06/19/25 Unkno wn History hydralazine 100 mg tablet 100 mg PO BID 06/19/2507/18 History rivastigmine 9.5 mg/24 hour 1 patch transdermal ONCE 1 08/19/24 07/18/25 History transdermal patch (Exelon Patch) sucralfate 1 gram tablet (Carafate) 1 g PO BID 5 Unknown History telmisartan 40 mg tablet 80 mg PO DAILY 06/19/2512/07 History insulin glargine 100 unit/mL (3 38 unit (0.38 mL) subc ut QAM #15 mL 06/24/25 Unknown Rx mL) subcutaneous pen (Lantus Solostar U-100 Insulin) escitalopram oxalate 10 mg tablet 10 mg PO DAILY 07/1707/18/25 History (Lexapro) Allergy/AdvReac Type Severity Reaction Status Date / Time azithromycin Allergy rash Verified 07/18/25 09:04 Sulfa (Sulfonamide Allergy PT UNSURE Verified 07/18/25 09:04 Antibiotics) OF REACTION tirzepatide (From Mounjaro) AdvReac Intermediate Diarrhea/GI Verified 07/18/25 09:04 upset wheat AdvReac Intermediate wheezingb Verified 07/18/25 09:04 lactose AdvReac Unknown Other Verified 07/18/25 09:04 Family History Mother Hypertension Myocardial infarction Kidney disease Father Diabetes CHF (congestive heart failure) CAD (coronary artery disease) Myocardial infarction Hypertension Surgical History thyroid removal History of tonsillectomy and adenoidectomy Total knee replacement status History of cholecystectomy left eye cataract surgery Social History Smoking Status: Never smoker alcohol intake: current alcohol intake frequency: holidays/special occasions only substance use type: does not use what type of physical activity do you participate in: bicycling frequency: 3-4 times per week ROS Constitutional Constitutional: Denies fatigue, fever(s), poor appetite, weight gain or weight loss Gastrointestinal Gastrointestinal: Denies belching, bloating, change in bowel habits, change in stool character, chewing difficulty, coffee ground emesis, constipation, cramping, diarrhea, dyspepsia, dysphagia, early satiety, excessive flatus, fecal incontinence, heartburn, hematemesis, hematochezia, hemorrhoids, loose stools, melena, nausea, odynophagia, rectal bleeding, tenesmus, vomiting or weight changes Vital Signs Vital Signs Vital Signs: 07/18/25 09:08 07/18/25 09:08 07/18/25 09:08 Temperature 97.8 F Temperature Source Temporal Pulse Rate 59 L Respiratory Rate 16 Respiratory Pattern Normal Blood Pressure 149/100 H Blood Pressure Mean 116 Blood Pressure Source Monitor Blood Pressure Position Semi-Fowlers Blood Pressure Location Right Arm Baseline BP 149/100 Pulse Ox 98 Oxygen Delivery Method Room Air 07/18/25 09:52 Temperature 97.8 F Temperature Source Pulse Rate 59 L Respiratory Rate 16 Respiratory Pattern Blood Pressure 149/100 H Blood Pressure Mean Blood Pressure Source Blood Pressure Position Blood Pressure Location Baseline BP Pulse Ox 98 Oxygen Delivery Method Room Air Weight Weight: 290 lb Body Mass Index (BMI) 48.2 Physical Exam Const alert, oriented x3, no apparent distress and healthy appearing General Appearance: cooperative GI normal to inspection, nondistended, normoactive bowel sounds, soft to palpation, non-tender and non-distended Percussion: normal to percussion Rectal Exam: deferred Assessment & Plan Assessment/Plan (1) Dysphagia: (2) Early satiety: PLAN: Assessment and Plan Assessment and Plan (1) Diabetes: Status: Chronic Qualifiers: Diabetes mellitus type: type 2 Diabetes mellitus retirement insulin use: 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 or 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 Diabetes mellitus complication status: with kidney complications Diabetes mellitus complication detail: with chronic kidney disease Chronic kidney disease stage: stage 3 (moderate) Chronic kidney disease stage 3 subtype: stage 3a (GFR 45-59) Qualified Code(s): E11.21 - Type 2 diabetes mellitus with diabetic nephropathy; N18.31 - Chronic kidney disease, stage 3a; Z79.4 - terminologist (current) use of insulin (2) Early satiety: Status: Acute (3) Dysphagia: Status: Acute Plan: Tanya is a 75-year-old female patient with past medical history of chronic kidney disease, diabetes, hypothyroidism, hypertension and hyperlipidemia here today for evaluation. Patient referred from primary care provider due to early satiety over the past 6 months. Patient was on Trulicity in the past but had to discontinue due to worsening in her symptoms however even after discontinuation her symptoms continued. Patient must eat small meals to avoid symptoms. She denies nausea vomiting heartburn or abdominal pain. Patient also endorsing intermittent episodes of esophageal dysphagia with 1 episode of regurgitation. Patient's history of diabetes and early satiety gastroparesis is on the differential. Since she is having difficulty swallowing as well as history of a hiatal hernia she will undergo EGD with dilation if indicated for evaluation of her upper GI tract. Pending result will consider gastric emptying study.Rec ommended small frequent meals low in fat and fiber. -EGD - Gastroparesis diet - Gastric emptying study - Follow-up after Note: Portions of this note may have been selectively carried forward from pr evious documentation to ensure continuity and accuracy of the clinical record. All imported information has been reviewed and updated as necessary to reflect the current patient status, findings, and clinical decision-making for this encounter. Upstream speech recognition publication manager software was used to create portions of this document. Sound alike and misspelled words, as well as other publication manager errors may be contained in the documentation.
--- NOTE | 2025-07-18 10:20 | OP.EGD_ITS ---
Patient Name: Tanya Gagnon Procedure Date: 07/18/2025 9:55 AM Date of : 1950 Age: 75 Procedure: Upper GI endoscopy Indications: Epigastric abdominal pain, Abdominal pain in the left upper quadrant, Abdominal pain in the left lower quadrant, Functional Dyspepsia, Dysphagia Providers: Jerome Alicea DO Referring MD: Sascha Morgan Medicines: Monitored Anesthesia Care Patient Profile: This is a 75 year old female. Refer to note in patient chart for documentation of history and physical. Patient has symptoms of chronic abdominal cramping, acute right upper quadrant abdominal pain, chronic left upper quadrant abdominal pain, dysphagia with both liquids and solids, chronic dyspepsia, chronic heartburn and chronic nausea. Complications: No immediate complications. Procedure: Pre-Anesthesia Assessment: - Prior to the procedure, a History and Physical was performed, and patient medications and allergies were reviewed. The patient is competent. The risks and benefits of the procedure and the sedation options and risks were discussed with the patient. All questions were answered and informed consent was obtained. Patient identification and proposed procedure were verified by the physician in the pre-procedure area. Mental Status Examination: alert and oriented. Airway Examination: normal oropharyngeal airway and neck mobility. Respiratory Examination: clear to auscultation. CV Examination: normal. Prophylactic Antibiotics: The patient does not require prophylactic antibiotics. Prior Anticoagulants: The patient has taken no anticoagulant or antiplatelet agents. ASA Grade Assessment: II - A patient with mild systemic disease. After reviewing the risks and benefits, the patient was deemed in satisfactory condition to undergo the procedure. The anesthesia plan was to use monitored anesthesia care (MAC). Immediately prior to administration of medications, the patient was re-assessed for adequacy to receive sedatives. The heart rate, respiratory rate, oxygen saturations, blood pressure, adequacy of pulmonary ventilation, and response to care were monitored throughout the procedure. The physical status of the patient was re-assessed after the procedure. After obtaining informed consent, the endoscope was passed under direct vision. Throughout the procedure, the patient's blood pressure, pulse, and oxygen saturations were monitored continuously. The Endoscope was introduced through the mouth, and advanced to the third part of the duodenum. Small bowel enteroscopy was deemed necessary. The upper GI endoscopy was accomplished without difficulty. The patient tolerated the procedure well. Scope In: 10:07:36 AM Scope Out: 10:12:56 AM Total Procedure Duration Time 0 hours 5 minutes 20 seconds Findings: Abnormal motility was noted in the esophagus. The cricopharyngeus was abnormal. There is a decrease in motility of the esophageal body. The distal esophagus/lower esophageal sphincter is spastic, but gives up passage to the endoscope. Tertiary peristaltic waves are noted. Biopsies were obtained from the proximal and distal esophagus with cold forceps for histology of suspected eosinophilic esophagitis. A guidewire was placed . Dilation was performed with a Savary dilator with no resistance at 57 Fr. The dilation site was examined and showed. Estimated blood loss was minimal. No gross lesions were noted in the entire examined stomach. No gross lesions were noted in the entire examined duodenum. Impression: - Abnormal esophageal motility. Dilated. - No gross lesions in the entire stomach. - No gross lesions in the entire examined duodenum. - Biopsies were taken with a cold forceps for evaluation of eosinophilic esophagitis. Recommendation: - Discharge patient to home. - Resume previous diet. - Continue present medications. - Await pathology results. Procedure Code(s): --- Professional --- 38412, Esophagogastroduodenoscopy, flexible, transoral; with insertion of guide wire followed by passage of dilator(s) through esophagus over guide wire [id number], 59, Small intestinal endoscopy, enteroscopy beyond second portion of duodenum, not including ileum; with biopsy, single or multiple CPT copyright 2021 [employer]. All rights reserved. The codes documented in this report are preliminary and upon logging tractor operator swamp review may be revised to meet current compliance requirements. Jerome Alicea DO 07/18/2025 10:19:35 AM This report has been signed electronically. Number of Addenda: 0 Note Initiated On: 07/18/2025 9:55 AM
--- NOTE | 2025-07-18 10:20 | OP.PROVAT_ITS ---
07/18/2025 Sascha Morgan Re : Upper GI endoscopy procedure for Tanya Gagnon Dear Eddie This procedure was performed on July. My impressions and recommendations are as follows: Impressions : - Abnormal esophageal motility. Dilated. - No gross lesions in the entire stomach. - No gross lesions in the entire examined duodenum. - Biopsies were taken with a cold forceps for evaluation of eosinophilic esophagitis. Recommendations : - Discharge patient to home. - Resume previous diet. - Continue present medications. - Await pathology results. My findings are described in the full procedure note, which is enclosed. If I can be of further assistance, please feel free to contact me at . Sincerely, Jerome Alicea, 07/18/2025 10:19:35 AM This report has been signed electronically.
--- NOTE | 2025-07-18 10:21 | PCM.POST.ANE ---
Anesthesia: Postop Eval I Current Vital Signs Temperature: 97.5 F Pulse Rate: 64 Blood Pressure: 130/47 Respiratory Rate: 16 Pulse Ox: 95 Oxygen Delivery Method: Room Air Assessment Airway patent: Yes Spontaneous unlabored respirations: Yes Mental status: Asleep nausea: No Vomiting: No Anesthesia Complication: No Fluid Hydration Crystalloid volume administer (ml): 400 Total IV fluid infused: 400 Progress Note Anesthesia document: Postop Eval 1 completed: Yes
--- NOTE | 2025-07-18 12:45 | PCM.POSTANE2 ---
Anesthesia Postop Eval I Sum Postop Eval Completion status Anesthesia document: Postop Eval 1 completed: Yes Anesthesia Postop Eval I Summary Anesthesia Postop Eval I Summary: Anesthesia Postop Eval I: Assessment Summary Airway patent Yes 07/18/25 10:21 [email or web address] Spontaneous unlabored Yes 07/18/25 10:21 [email or web address] respirations Mental status Asleep 07/18/25 10:21 [email or web address] nausea No 07/18/25 10:21 [email or web address] Vomiting No 07/18/25 10:21 [email or web address] Anesthesia Postop Eval I: Fluid Summary Crystalloid volume administer 400 07/18/25 10:21 [email or web address] (ml) Colloids volume administered ( ml) Blood Product volume administered (ml) Total IV fluid infused 400 07/18/25 10:21 [email or web address] Anesthesia Postop Eval I: Summary Notes Anesthesia Complication No 07/18/25 10:21 [email or web address] Anesthesia Complication Comment: Post-operative progress note Anesthesia: Postop Eval II Evaluation Mental status: Awake and Calm Pain Level: 0 nausea: No Vomiting: No Complications Anesthesia Complication: No
== END 2025-07-18 11:25 | disposition home or self-care (01) ==
LOC: EN 08:38 → AC 08:41
PROVIDERS: PCP Family Medicine; Referring Provider Family Medicine; Visit Provider Internal Medicine Gastroenterology
PROC: 0DJ08ZZ Inspection of Upper Intestinal Tract, Via Natural or Artificial Opening Endoscopic (ICD-10-PCS; CPT 43235; principal; 2025-07-18 09:25)
DX: K22.4 Dyskinesia of esophagus (principal); F03.90 Unspecified dementia, unspecified severity, without behavioral disturbance, psychotic disturbance, mood disturbance, and anxiety; E11.22 Type 2 diabetes mellitus with diabetic chronic kidney disease; E11.21 Type 2 diabetes mellitus with diabetic nephropathy; Z79.4 Long term (current) use of insulin; N18.31 Chronic kidney disease, stage 3a; R10.13 Epigastric pain; I12.9 Hypertensive chronic kidney disease with stage 1 through stage 4 chronic kidney disease, or unspecified chronic kidney disease; E78.5 Hyperlipidemia, unspecified; J45.909 Unspecified asthma, uncomplicated; E03.9 Hypothyroidism, unspecified; Z79.890 Hormone replacement therapy; Z79.899 Other long term (current) drug therapy; Z79.85 Long-term (current) use of injectable non-insulin antidiabetic drugs; R10.12 Left upper quadrant pain; R10.32 Left lower quadrant pain
CPT/HCPCS: 43248; 82962; 88305; C1769; J2405